=== PATIENT | female | born 1955 | race Caucasian/White ===

== ENCOUNTER 2017-02-22 20:59 | Observation (INO) | payer OTHER ==
--- NOTE | 2017-02-22 21:15 | EDPD ---
HPI Stroke - General Time Seen by Provider: 02/22/17 21:11 Historian: Patient - History of Present Illness Narrative History of Present Illness (Free Text): 02/22/17 21:12 Lily Hdez is a 61 year old female, whose past medical history includes CVA and migraines, who presents to the Emergency department complaining of right upper and lower extremity numbness since 18:00 tonight after dinner. Patient also reports some associated right upper weakness. Patient denies any headache, dizziness, vision changes, speech changes, fever, chills, chest pain, shortness of breath, nausea, vomiting, back pain, neck pain, or any other complaints. Date:: 02/22/17 Time: 21:12 Onset:: Hours (18:00) Timing: Currently Symptomatic Context: Standing, Home Associated Symptoms: Numbness Exacerbated by: Nothing Relieved by: Nothing - Location Location: None Locate Right: Upper extremity, Lower extremity - Pain Assessment/Levels Maximum Severity: None rTPA Inclusion/Exclusion - Refusal of Treatment Patient Refused Treatment: No - Inclusion Criteria for Altepase Patient is 18 years or Older: Yes The Clinical Diagnosis of Ischemic Stroke That is Causing a Potentially Disabling Neurological Deficit: No Time of Onset is Well Established to be Less Than 270 Minute Before Treatment Would Begin: No Risk/Benefit Discussed With Patient/Family Member Present: Yes - Exclusion Criteria for Altepase Uncontrolled Hypertension at Time of Treatment (Systolic BP above 185 or Diastolic BP above 110 mmHg): No Active Internal Bleeding: No Known Bleeding Diathesis Including but Not Limited to: Platelets Below 100,000/ mm,PTT Above 40 sec After Heparin Use, Current Use of Oral Anitcoagulant With INR Greater Than 1.7 or PT Greater Than 15 secs: No Evidence of an Intracranial Hemorrhage: No Evidence of Major Acute Infarct With Signs Greater Than 1/3 MCA Territory: No Suspicion of Subarachnoid Hemorrhage on Pretreatment Evaluation Even if CT Head Negative For Hemorrhage: No - Warning to TPA With Conditions Following Conditions Weighed Against Anticipated Benefit: Yes Condition: Stroke Serevity Too Mild Past Medical History - Provider Review Nursing Documentation Reviewed: Yes - Infectious Disease Hx of Infectious Diseases: None - Tetanus Immunization Tetanus Immunization: Unknown - Cardiac Hx Cardiac Disorders: No - Pulmonary Hx Respiratory Disorders: No - Neurological HX Cerebrovascular Accident: Yes (cva 20 years ago) Hx Migraine: Yes - HEENT Hx HEENT Disorder: No - Renal Hx Renal Disorder: No - Endocrine/Metabolic Hx Endocrine Disorders: No - Hematological/Oncological Hx Blood Disorders: No - Integumentary Hx Dermatological Disorder: No - Musculoskeletal/Rheumatological Hx Musculoskeletal Disorders: No - Gastrointestinal Hx Gastrointestinal Disorders: No - Genitourinary/Gynecological Hx Genitourinary Disorders: No - Psychiatric Hx Psychophysiologic Disorder: No Hx Depression: No Hx Emotional Abuse: No Hx Physical Abuse: No Hx Substance Use: No - Surgical History Hx Orthopedic Surgery: Yes - Suicidal Assessment Feels Threatened In Home Enviroment: No Family/Social History - Family/Social History Family History: Non-Contributory - DrWayne Review Nursing documentation reviewed.: Yes Allergies/Home Meds Allergies/Adverse Reactions: Allergies No Known Allergies Allergy (Verified 06/26/12 10:22) Home Medications: Home Meds Medication Instructions Recorded Confirmed Aspirin [Aspir 81] 81 mg PO DAILY 06/26/12 02/22/17 Review of Systems - Physician Review All systems were reviewed & negative as marked: Yes - Review of Systems Constitutional: Normal. absent: Fevers Eyes: Normal. absent: Vision Changes ENT: Normal Respiratory: Normal. absent: SOB, Cough Cardiovascular: Normal. absent: Chest Pain Gastrointestinal: Normal. absent: Abdominal Pain, Diarrhea, Nausea, Vomiting Genitourinary Female: Normal. absent: Dysuria, Frequency, Hematuria, Urine Output Changes Musculoskeletal: Normal. absent: Back Pain, Neck Pain Skin: Normal. absent: Rash Neurological: Focal Weakness (+right upper/lower extremity numbness). absent: Headache, Dizziness Endocrine: Normal Hemo/Lymphatic: Normal Psychiatric: Normal ED Stroke Physical Exam Vital Signs Reviewed: Yes Temperature: Afebrile Blood Pressure: Normal Pulse: Regular Respiratory Rate: Normal Appearance: Positive for: Well-Appearing, Non-Toxic, Comfortable Pain Distress: None Mental Status: Positive for: Alert and Oriented X 3 - Systems Exam Head: Present: Atraumatic, Normocephalic Pupils: Present: PERRL Extroacular Muscles: Present: EOMI Conjunctiva: Present: Normal Mouth: Present: Moist Mucous Membranes Neck: Present: Normal Range of Motion. No: Meningeal Signs, MIDLINE TENDERNESS , Paraspinal Tenderness Respiratory/Chest: Present: Clear to Auscultation, Good Air Exchange. No: Respiratory Distress, Accessory Muscle Use Cardiovascular: Present: Regular Rate and Rhythm, Normal S1, S2. No: Murmurs Abdomen: Present: Normal Bowel Sounds. No: Tenderness, Distention, Peritoneal Signs Genitourinary/Pelvic Exam: Present: NI. No: C, E Back: Present: Normal Inspection. No: CVA Tenderness, Midline Tenderness, Paraspinal Tenderness Upper Extremity: Present: Normal ROM, NORMAL PULSES. No: Cyanosis, Edema, Tenderness, Swelling, Erythema, Temperature Abnormalties Lower Extremity: Present: Normal Inspection. No: Edema Neurologic: Present: GCS=15, CN II-XII Intact, Motor Func Grossly Intact, Norm Deep Tendon Reflexes, Memory Normal. No: Normal Sensory Function (Slight decreased sensation in right hand), Pronator Drift, Facial Droop, Dysmetric Finger to Nose, Other (Slight decreased reception strength in right hand) Skin: Present: Warm, Dry, Normal Color. No: Rashes Lymphatic: Present: OX3, NI, NC Psychiatric: Present: Alert, Oriented x 3, Normal Insight, Normal Concentration Medical Decision Making ED Course and Treatment: 02/22/17 21:12 Impression: 61 year old female complaining of right-sided upper/lower extremity numbness and some right upper extremity weakness since 18:00. Differential Diagnosis included but are not limited to: TIA vs. CVA Plan: -- CT Head w/o contrast -- EKG -- CXR -- Labs, troponin, lipid panel, blood type and screen -- Reassess and disposition Prior Visits: Notes and results from previous visits were reviewed. On 06/27/2015, pt was seen in the Emergency department s/p mechanical fall for right elbow laceration with pain to the area. Pt was d/c home. Progress Notes: 02/22/17 21:12 Pt seen on arrival. Code Stroke called. Pt taken to CT scan. 02/22/17 21:[address] Rai Loco, neurologist, who is aware and agrees with plan. States pt in not a candidate for tPA due to low severity of symptoms. Aspirin ordered. 02/22/17 21:[address] Head, shows: Brain: There is a small hypodense lacunar infarct within the left basal ganglia , which is too small to determine acuity. The white-gonzalez differentiation is preserved demonstrating no acute territorial type infarct. There is slight prominence of the sulci, compatible with atrophy. No acute intracranial hemorrhage is seen. Midline shift: There is no midline shift. Ventricles: No ventriculomegaly. Bones/joints: The calvarium demonstrates no evidence for a depressed fracture. Soft tissues: No acute abnormality. Vasculature: There is atherosclerotic calcification of the cavernous internal carotid arteries. Sinuses: Unremarkable as visualized. No acute sinusitis. Mastoid air cells: No mastoid effusion. IMPRESSION: 1. There is a small hypodense lacunar infarct within the left basal ganglia, which is too small to determine acuity. Otherwise, there is no acute territorial type infarct. 2. No acute intracranial hemorrhage or acute territorial type infarct. 3. Slight atrophy. 02/22/17 21:57 EKG reviewed, NSR at [address]-segment elevations or depressions, no T-wave inversions, normal intervals. 02/22/17 22:19 CXR reviewed, shows no acute processes. 02/22/17 23:[address] Day, who is aware and agrees with plan. Accepts pt in to her service. Pt will go to Telemetry observation for TIA. Requests Dr. Rai Loco on consult. Pt in no acute distress. Discussed results and hospital observation plan with pt , who is aware and verbalizes understanding. - Critical Care Critical Care Minutes: 30 minutes - Scribe Statement The provider has reviewed the documentation as recorded by the Scribe Dania Robbins All medical record entries made by the Scribe were at my direction and personally dictated by me. I have reviewed the chart and agree that the record accurately reflects my personal performance of the history, physical exam, medical decision making, and the department course for this patient. I have also personally directed, reviewed, and agree with the discharge instructions and disposition. NIHSS Scale ([place]) Time Performed: 21:12 - How Severe is the Stoke Baseline Level of Consciousness: 0=Alert LOC to Questions: 0=Both comments correct LOC to commands: 0=Obeys both correctly Best Gaze: 0=Normal Visual: 0=No visual loss Facial: 0=Normal Motor Arm - Left: 0=No drift Motor Arm - Right: 0=No drift Motor Leg - Left: 0=No drift Motor Leg - Right: 0=No drift Limb Ataxia: 0=Absent Sensory: 1=Mild to moderate loss Best Language: 0=No aphasia Dysarthia: 0=Normal articulation Extinction & Inattention (Neglect): 0=Normal, no object Score: 1 Risk Level: Minor Stroke Risk Disposition/Present on Arrival - Present on Arrival Any Indicators Present on Arrival: No History of DVT/PE: No History of Uncontrolled Diabetes: No Urinary Catheter: No History of Decub. Ulcer: No History Surgical Site Infection Following: None - Disposition Have Diagnosis and Disposition been Completed?: Yes Diagnosis: TIA (transient ischemic attack) Disposition: HOSPITALIZED Disposition Time: 23:52 Patient Problems: Current Active Problems Problem Status Onset TIA (transient ischemic attack) Acute Condition: STABLE Referrals: Barbara eLhman, [Primary Care Provider] - Follow up with primary
[2017-02-22 21:16] VITALS: BMI 29.6
[2017-02-22 21:52] LABS: BASO # 0.1 K/mm3 (0.0-2.0); BASO % 1.5 % (0.0-3.0); EOS # 0.3 (0.0-0.7); EOS % 4.4 % (1.5-5.0); GRAN # 3.62 (1.4-6.5); GRAN % 53.6 % (50.0-68.0); HEMATOCRIT 37.5 % (36.0-48.0); LYMPH # 2.1 (1.2-3.4); LYMPH % 30.6 % (22.0-35.0); MEAN CELL VOLUME 75.8 fl (80.0-105.0); MEAN CORPUSCULAR HEMOGLOBIN 25.3 pg (25.0-35.0); MEAN CORPUSCULAR HGB CONC 33.3 g/dl (31.0-37.0); MEAN PLATELET VOLUME 10.4 fl (7.0-11.0); MONO # 0.7 (0.1-0.6); MONO % 9.9 % (1.0-6.0); RED CELL DISTRIBUTION WIDTH 14.9 % (11.5-14.5); WHITE BLOOD COUNT 6.8 10^3/ul (4.5-11.0)
[2017-02-22 22:03] LABS: ALB/GLOB RATIO 1.2 (1.1-1.8); ALKALINE PHOSPHATASE 75 U/L (38-126); ALT/SGPT 30 U/L (7-56); AST/SGOT 26 U/L (14-36); BILIRUBIN,TOTAL 0.2 mg/dL (0.2-1.3); BLOOD UREA NITROGEN 19 mg/dL (7-21); CALCIUM 9.3 mg/dL (8.4-10.5); CARBON DIOXIDE 23 mmol/L (21-33); CHLORIDE 106 mmol/L (98-107); CHOLESTEROL 174 mg/dL (130-200); GFR AFRICAN-AMERICAN > 60; GLUCOSE,RANDOM 101 mg/dL (70-110); SODIUM 140 mmol/L (132-148); TOTAL PROTEIN 8.1 g/dL (5.8-8.3)
[2017-02-22 22:05] LABS: INR 0.99 (0.93-1.08); PARTIAL THROMBOPLASTIN TIME 29.7 Seconds (25.1-36.5)
[2017-02-22 22:17] LABS: TROPONIN I < 0.01 ng/mL
--- NOTE | 2017-02-23 09:24 | RAD ---
HISTORY: code stroke COMPARISON: No prior. FINDINGS: LUNGS: Poor inspiration with low lung volumes. PLEURA: No significant pleural effusion identified, no pneumothorax apparent. CARDIOVASCULAR: Normal. OSSEOUS STRUCTURES: No significant abnormalities. VISUALIZED UPPER ABDOMEN: Normal. OTHER FINDINGS: None. IMPRESSION: Poor inspiration with low lung volumes. No focal consolidation.
--- NOTE | 2017-02-23 09:53 | CT ---
PROCEDURE: CT HEAD WITHOUT CONTRAST. HISTORY: Code Stroke COMPARISON: None available. TECHNIQUE: Axial computed tomography images were obtained through the head/brain without intravenous contrast. Radiation dose: Total exam DLP = 903.25 mGy-cm. This CT exam was performed using one or more of the following dose reduction techniques: Automated exposure control, adjustment of the mA and/or kV according to patient size, and/or use of iterative reconstruction technique. FINDINGS: HEMORRHAGE: No acute parenchymal, subarachnoid nor extra-axial hemorrhage. BRAIN: Suspect minimal chronic periventricular white matter ischemic changes. Few tiny foci scattered about both basal nuclei could represent tiny chronic lacunar type infarcts. VENTRICLES: Unremarkable. No hydrocephalus. CALVARIUM: Unremarkable. PARANASAL SINUSES: Unremarkable as visualized. No significant inflammatory changes. MASTOID AIR CELLS: Unremarkable as visualized. No inflammatory changes. OTHER FINDINGS: Changes of bilateral cataract surgery are present. IMPRESSION: No acute intracranial hemorrhage. Suspect minimal chronic periventricular white matter ischemic changes. Few tiny foci scattered about both basal nuclei could represent tiny chronic lacunar type infarcts. Mild generalized volume loss.
--- NOTE | 2017-02-23 10:44 | CARD ---
APPROVED REPORT EKG Measurement Heart [id number] <Conclusion> Normal sinus rhythm Normal ECG
--- NOTE | 2017-02-23 14:31 | HP ---
HISTORY OF PRESENT ILLNESS: This 61-year-old female was examined at bedside who was admitted for probable TIA. The patient presented to [facility] ER complaining of acute onset of right upper and lower extremity numbness last evening. The patient has past medical history of old stroke. She presented with numbness on the right arm and leg and was admitted for further evaluation of the above. PAST SURGICAL HISTORY: The patient states past medical history is significant for right breast mass biopsy, unremarkable for carcinoma as well as left eye retinal surgery. SOCIAL HISTORY: The patient is a current nondrinker, nonsmoker. 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 MEDICATIONS: She states her only outpatient medication included Ecotrin 81 mg p.o. daily. REVIEW OF SYSTEMS: CONSTITUTIONAL: No fever, no chills. No complaints of weight loss or decreased appetite. HEAD: History of migraines and old stroke in the distant past. EYES: By review recent left eye surgery now with excellent visual acuity. EARS: No hearing loss. THROAT: No swallowing difficulty. NECK: No stiffness. CARDIAC: No chest pain. No palpitation. No history of myocardial infarction. PULMONARY: No cough. No hemoptysis. GI: No hematemesis or melena. : No dysuria. SKIN: No rash. VASCULAR: No claudication. PSYCHOLOGIC: No history of depression. NEUROLOGIC: History of old CVA and now with resolved right arm numbness. No report of motor weakness. FAMILY HISTORY: Noncontributory. SOCIAL HISTORY: She is a nondrinker, nonsmoker, no IV drug abuse. PHYSICAL EXAMINATION: VITAL SIGNS: Temperature 97.6, respirations 18, pulse 58 and blood pressure 131/75. Pulse ox 99% room air. national sales director shows NSR. HEAD: Normocephalic, atraumatic. EYES: No icterus. EARS: Clear. THROAT: Noninjected. NECK: Supple. HEART: Regular. S1, S2. LUNGS: Clear to auscultation. ABDOMEN: Soft. EXTREMITIES: No edema. SKIN: Without rash. NEUROLOGIC: Grossly intact. Motor strength intact. Sensory exam intact. VASCULAR: Legs warm to touch. SKIN: Without rash. DIAGNOSTICS: EKG showed a normal sinus rhythm. Chest x-ray showed no active disease. No evidence of pneumonia, no CHF, no pleural effusion. CT of the head was reviewed, it revealed no acute parenchymal subarachnoid or extra-axial hemorrhage. Ventricles were unremarkable, no hydrocephalous and there were few, tiny, focal, scattered areas in both basal nuclei which could represent tiny chronic lacunar type infarcts. Mild general volume loss was noted as well. IMPRESSION: A 61-year-old female with history of old cerebrovascular accident, now with evidence of a possible transient ischemic attack with right-sided numbness, now improved. PLAN: The plan at present is to await neurological evaluation. The patient scheduled for carotid ultrasound and echocardiography. She is also ordered to have an MRI without contrast and is ordered to receive Ecotrin 81 mg p.o. daily as well as Plavix 75 mg p.o. daily. LABORATORY DATA: Patient's laboratories show white count 6800, hemoglobin 12.5, hematocrit 37.5, platelets 226,000. PT/INR 0.99, PTT 29.7. Sodium 140, K 4.0, chloride 106, bicarb 23, BUN 19, creatinine 0.7, random blood sugar is 101 and all liver function testing was normal including bilirubin 0.2, AST 26, ALT 30 and alk phos 75. Cholesterol was 174, LDL 91, HDL 61 and triglycerides 135. Based on the results of the above, the patient will have additional testing and adjustment of medication, this will be discussed with neurologist, Dr. Rai Loco, and physical and occupational therapy has been ordered as well. Greater than sixty minutes was spent the care, counseling, management, review of x-rays, labs and medication with this patient today. I have reviewed her case in detail with nursing, Eulalia Barajas, registered nurse. All questions were answered. Shantal Day MD CLARA
--- NOTE | 2017-02-24 01:45 | CON ---
DATE: REASON FOR CONSULTATION: Numbness and weakness of the right side. HISTORY OF PRESENT ILLNESS: The patient is a 61-year-old female who has been asked for evaluation of weakness and numbness in the right side. Apparently, the patient around 6 p.m. while having dinner noticed that she has some tingling and numbness sensation in the right upper extremity as well as the right lower extremity. There is no tingling or numbness sensation of the right side of the face. She was also experiencing some weakness in the right hand. She still feels that the hand operations plant attendant on the right side is not the same as before, but the tingling and numbness have resolved. The patient states she had a stroke when she was 31 years old. At that time, she was diagnosed with antiphospholipid antibody syndrome. She was placed on some anticoagulation, but later on was switched to antiplatelet agent. She has history of migraine headaches; however, at this time, she had no headaches with the symptoms or after the symptoms. REVIEW OF SYSTEMS: Denies any headache, dizziness, chest pain, shortness of breath, abdominal pain, constipation, diarrhea, dysuria, pyuria, cough, sputum production, or hallucinations. MEDICATIONS: Stroke medications at home include aspirin 81 mg daily. ALLERGIES: NO KNOWN DRUG ALLERGIES. SOCIAL HISTORY: Denies smoking, use of alcohol, or illicit drugs. FAMILY HISTORY: Reviewed and noncontributory to the case. PHYSICAL EXAMINATION: GENERAL: The patient is a middle-aged pleasant female lying on the bed, in no acute distress. VITAL SIGNS: Her blood pressure is 131/75, heart rate 58 per minute, breathing at a rate of 16 per minute, and temperature is 97.6 degrees Fahrenheit. HEENT: Head is normocephalic and atraumatic. NECK: Supple. There are no carotid bruits. LUNGS: Clear. CV Exam: S1 and S2 audible. No murmurs. ABDOMEN: Soft and nontender with positive sounds present. NEUROLOGIC: Mental status. The patient is awake, alert, oriented to time, place, and person. Speech is fluent. Naming and repetition is normal. Memory and cognition are intact. Cranial nerve examination: Pupils are 4 mm bilaterally and reactive to light. Visual workman are full. Extraocular movements are intact. There is no facial asymmetry. The palate is upgoing bilaterally and tongue is midline. Motor Examination: Tone is normal. Power is 5/5 bilaterally in all extremities. Reflexes are +1 and symmetrical. Plantars are downgoing bilaterally. Cerebellar examination, [id number] shows no dysmetria. Gait is narrow based. LABS: The labs reviewed shows a WBC 6.8, hemoglobin 12.5, hematocrit 37.5, and platelets of 226. Sodium is 140, potassium 4.0, chloride 106, carbon dioxide 22, BUN 19, creatinine 0.7, and glucose of 101. Her LDL cholesterol 91, total cholesterol 174. Her INR is 0.99, PTT is 29.17. She had a CT scan of the head done, which shows no acute intracranial pathology. IMPRESSION: 1. Status post weakness and numbness in the right lower extremity. This is likely secondary to transient ischemic attack. Rule out any cerebrovascular accident. RECOMMENDATION: 1. The patient do have MRI of the brain without contrast. 2. The patient also had a carotid Doppler study. 3. The patient did not have an echocardiogram. 4. The patient is yet to be started on Plavix in addition to her aspirin. 5. The patient also has been started on statin. 6. The patient to have physical therapy and occupational therapy evaluation. 7. Please continue supportive care and treatment. Thank you for the opportunity to participate in the care of this patient. Neal Loco MD
--- NOTE | 2017-02-24 10:39 | MRI ---
PROCEDURE: MRI BRAIN WITHOUT CONTRAST HISTORY: TIA COMPARISON: Comparison made with CT scan of the brain 02/22/2017. TECHNIQUE: Multiplanar, multisequence MR images of the brain were obtained without intravenous contrast enhancement. FINDINGS: HEMORRHAGE: No acute parenchymal, subarachnoid or extra-axial hemorrhage. No evidence of hemosiderin deposition identified on gradient echo weighted sequence. DWI: No evidence of an acute or early subacute infarction seen on diffusion imaging. . BRAIN PARENCHYMA: Multiple tiny focal areas of increased T2 signal seen scattered about the deep and subcortical white matter of both cerebral hemispheres. Additionally, there is a small focal area of increased T2 signal in the left posterior basal ganglia extending superiorly into the left coronal radiata. Minimal slightly confluent prolonged T2 signal changes seen in the periventricular white matter. Changes are nonspecific though most likely represent minor chronic sequela of small vessel disease. Differential diagnosis would include sequela of old trauma mild, migraine headaches or post infectious/inflammatory in etiology. Demyelinating disease process would be less likely in the absence of a pertinent clinical history though not completely excluded. No obvious parenchymal nor extra-axial mass or collection seen on this noncontrast study. Mild generalized volume loss. VENTRICLES: No obstructive hydrocephalus. CRANIUM: Unremarkable. ORBITS: Changes of bilateral cataract surgery again noted. PARANASAL SINUSES/MASTOIDS: Clear VASCULAR SYSTEM: Visualized major vascular flow voids at skull base are patent. OTHER FINDINGS: None. IMPRESSION: No acute intracranial hemorrhage or infarct. Minor chronic white matter and left basal nuclei ischemic changes. Mild generalized volume loss.
--- NOTE | 2017-02-25 08:10 | PN ---
DATE: 02/24/2017 SUBJECTIVE: This 61-year-old female was examined at her bedside on the Cardiac Unit. This case was reviewed in detail with herself and her nurse. The patient remains in a normal sinus rhythm. She was admitted with neurological changes consistent with transient ischemic attack. At present, the patient denies any fever, chills, cough, chest pain, shortness of breath or new motor weakness or extremity numbness. She remains in a normal sinus rhythm on the corporate affairs manager and is cooperating with diagnostic testing that has been ordered. PHYSICAL EXAMINATION: VITAL SIGNS: Temperature is 98.2, respirations 18, pulse 72 and blood pressure 112/83 with a pulse ox of 99% room air. Her corporate affairs manager shows normal sinus rhythm. HEENT: Head is normocephalic, atraumatic. Eyes: No icterus. Ears: Clear. Throat: Noninjected. NECK: Supple. HEART: Heart is regular, S1, S2. No pathological rubs, murmurs or gallops. LUNGS: Clear to auscultation. ABDOMEN: Soft. EXTREMITIES: No clubbing, no cyanosis, no edema. SKIN: Intact. No rash. VASCULAR: Legs warm to touch. PSYCHOLOGICAL: Alert and oriented x3. NEUROLOGIC: Grossly intact. LABORATORY DATA: White count 6800, hemoglobin 12.5, hematocrit 37.5, platelets 226,000. PT/INR 0.99, PTT 29.7. Sodium 140, K 4.0, chloride 106, bicarb 23, BUN 19, creatinine 0.7, random blood sugar 101. Hemoglobin A1c normal 6.0. All liver function testing is normal including bilirubin 0.2, AST 26, ALT 30 and alk phos 75. Troponin less than 0.01. Cholesterol 174, LDL 91, HDL 61, triglycerides 135. Chest x-ray was reviewed, no evidence of CHF, no pneumonia, no infiltrate, no effusion. EKG: Normal sinus rhythm, nonspecific ST-T wave changes. Head CT, no evidence of gross infarct or hemorrhage. IMPRESSION: A 61-year-old female with history of old stroke, now with transient ischemic attack, resolving symptoms of numbness, no evidence of motor weakness. The patient has been seen by neurologist, Dr. Loco. PLAN: At present is to pursue echocardiography, carotid ultrasound, brain MRI. The patient is ordered to have physical and occupational therapy. She has been prescribed Ecotrin 81 mg p.o. daily, Lipitor 40 mg p.o. at dinner time, Plavix 75 mg p.o. daily. She continues on a heart-healthy diet. She will be maintained on the Cardiac Unit. She will have the above testings completed and reviewed and based on her clinical progress and testing results, additional intervention will be outlined. All of the above was discussed in detail with the patient, nursing and Neurology. Greater than 35 minutes was spent in the care, review of x-rays, labs and counseling of this patient today. All questions were answered. Shantal Day MD MTDD
--- NOTE | 2017-02-25 08:37 | PN ---
DATE: 02/24/2017 NEUROLOGY PROGRESS NOTE SUBJECTIVE: The patient is lying on the bed, in no acute distress. Said the numbness, tingling, and sensation on the right side is better. PHYSICAL EXAMINATION: VITAL SIGNS: Her blood pressure is 112/83, heart rate is 69 per minute, breathing at the rate of 16 per minute, and temperature is 98.5 degrees Fahrenheit. HEENT: Head is normocephalic and atraumatic. NECK: Supple. There are no carotid bruits. LUNGS: Clear. CARDIOVASCULAR: S1 and S2 audible. No murmurs. ABDOMEN: Soft and nontender. Bowel sounds are present. NEUROLOGY: Mental status: The patient is awake, alert, and oriented to time, place, and person. Speech is fluent. Naming and repetition is normal. Memory and cognition are intact. Cranial nerves examination; pupils are 3 mm bilaterally and reactive to light. Visual workman are full. Extraocular movements are intact. Motor examination; tone is normal. Power is 5/5 bilaterally in all extremities. Reflexes are +2 and symmetrical. Plantar is downgoing bilaterally. Cerebellar examination, [id number] shows no dysmetria. LABORATORY DATA: Labs reviewed. MRI of the brain shows no acute intracranial hemorrhage or infarct, minor chronic white matter ischemic changes. She had carotid Doppler study done, the report is awaited. She also had an echocardiogram done, the report is awaited. IMPRESSION: Transient ischemic attack. RECOMMENDATIONS: 1. The patient to be continued on aspirin and Plavix. 2. The patient also to be continued on statin. 3. The patient's symptoms on the right side is better. 4. We will also obtained an electroencephalogram. 5. The patient to have physical therapy. 6. The patient remains stable and echocardiogram and cardiac Doppler are within normal limits and then she may be discharged with outpatient followup. Thank you for the opportunity to participate in the care of this patient. Neal Loco MD
[2017-02-25] MEDS ORDERED: Influenza Vaccine 60 mcg/0.5 mL SYR (4YR UP) IM ONE (10:00)
[2017-02-25] MEDS ORDERED: Pneumococcal 23-Valent Vaccine IM ONE (10:00)
--- NOTE | 2017-02-25 14:44 | CARD ---
APPROVED REPORT EXAM: Two-dimensional and M-mode echocardiogram with Doppler and color Doppler. INDICATION 2D DIMENSIONS IVSd1.0 (0.7-1.1cm)LVDd4.6 (3.9-5.9cm) PWd0.7 (0.7-1.1cm)LVDs3.1 (2.5-4.0cm) FS (%) 31.7 %LVEF (%)59.8 (>50%) M-Mode DIMENSIONS Left Atrium (MM)2.90 (2.5-4.0cm)Aortic Root2.60 (2.2-3.7cm) Aortic Cusp Exc.1.90 (1.5-2.0cm) Aortic Valve AoV Peak Wbzxyxfb900.0cm/Beverly Peak GR.9mmHg Mitral Valve MV E Wbnxtztd86.4cm/sMV A Ggazaqrf44.1cm/sE/A ratio1.3 TDI Lateral E' Peak V11.90cm/sMedial E' Peak V9.26cm/sE/Lateral E'7.4 E/Medial E'9.5 Tricuspid Valve TR Peak Aptgxzji478jo/sRAP VZBZRJOC74ziByAV Peak Gr.27mmHg AEJR77frDa LEFT VENTRICLE The left ventricle is normal size. There is normal left ventricular wall thickness. The left ventricular function is normal.EF-55-60% There is normal LV segmental wall motion. The left ventricular diastolic function is normal. No left ventricle thrombus noted on this study. There is no ventricular septal defect visualized. There is no left ventricular aneurysm. There is no mass noted in the left ventricle. RIGHT VENTRICLE The right ventricle is normal size. There is normal right ventricular wall thickness. The right ventricular systolic function is normal. ATRIA The left atrium size is normal. The right atrium size is normal. The interatrial septum is intact with no evidence for an atrial septal defect. AORTIC VALVE The aortic valve is thickened but opens well. No aortic regurgitation is present. There is no aortic valvular stenosis. There is no aortic valvular vegetation. MITRAL VALVE The mitral valve is thickened but opens well. Mitral annular calcification is mild. Mitral regurgitation is trace. There is no mitral valve stenosis. There is no evidence of mitral valve prolapse. TRICUSPID VALVE The tricuspid valve leaflets are thickened , but open well. There is mild tricuspid regurgitation.RVSP-37 mmof hg. There is no tricuspid valve stenosis. There is no tricuspid valve prolapse or vegetation. PULMONIC VALVE The pulmonary valve is normal in structure. There is no pulmonic valvular regurgitation. There is no pulmonic valvular stenosis. GREAT VESSELS The aortic root is normal in size. The ascending aorta is normal in size. The pulmonary artery is normal. The IVC is normal in size and collapses >50% with inspiration. PERICARDIAL EFFUSION There is no pleural effusion. There is no pericardial effusion. <Conclusion> Normal Chamber SIze. EF-55-60% Mitral regurgitation is trace. There is mild tricuspid regurgitation.RVSP-37 mmof hg. No vegetation or thrombus noted.
--- NOTE | 2017-02-25 19:02 | US ---
PROCEDURE: Bilateral carotid artery duplex ultrasound HISTORY: Carotid stenosis TIA PHYSICIAN(S): Kyle Morocho MD. TECHNIQUE: Duplex sonography and color-flow Doppler were used to evaluate the carotid bifurcations and limited segments of the vertebral arteries bilaterally. FINDINGS: There is mild smooth hypoechoic plaque noted at the carotid bifurcations bilaterally. The peak systolic velocity in the proximal right internal carotid artery is 66 cm/sec. This corresponds to a 20 to 39% proximal right ICA stenosis. Normal systolic velocities are noted in the proximal right external carotid artery. There is antegrade flow in the right vertebral artery. The peak systolic velocity in the proximal left internal carotid artery is 75 cm/sec. This corresponds to a 20 to 39% proximal left ICA stenosis. Normal systolic velocities are noted in the proximal left external carotid artery. There is antegrade flow in the dominant left vertebral artery. IMPRESSION: 1. Bilateral 20-39% proximal ICA stenoses. 2. Antegrade flow in both vertebral arteries.
--- NOTE | 2017-02-26 08:14 | PN ---
DATE: 02/25/2017 SUBJECTIVE: This 61-year-old female was examined at her bedside. She remains on the cardiac unit. She is currently in a normal sinus rhythm. She denies any headache, fever, chills, chest pain, or shortness of breath. There have been no reports of seizure, motor weakness, or any new numbness. She is complaining of low right back pain and states she has a history of sciatica and feels as if she is having a recurrent episode at present. Today, the patient has been neurologically stable. Her workup has included carotid ultrasound; echocardiography which remain pending. Chest x-ray shows no active disease; brain MRI showed no evidence of new stroke or infarct; and head CT was unremarkable as well, an EEG has been requested. 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 Temperature 97.5, respirations 20, pulse 59, blood pressure 122/75, pulse oximetry 99% on room air. HEENT: Head normocephalic, atraumatic. Eyes: No icterus. Ears: Clear. Throat: Noninjected. NECK: Supple. HEART: Regular S1, S2. LUNGS: Clear. ABDOMEN: Soft. EXTREMITIES: No edema. SKIN: Without rash. NEUROLOGICAL: Intact. PSYCHOLOGICAL: Alert. VASCULAR: Legs warm to touch. LABORATORY DATA: White count 6800, hemoglobin 12.5, hematocrit 37.5, platelets 226,000. PT/INR 0.99, PTT 29.7. Sodium 140, K 4.0, chloride 106, bicarb 23, BUN 19, creatinine 0.7, random blood sugar 101. Hemoglobin A1c normal 6.0. All liver function testing was normal including bilirubin 0.2, AST 26, ALT 30, alkaline phosphatase 75. Cholesterol 174, triglycerides 135, LDL 91, HDL 61. IMPRESSION: A 61-year-old female with history of old stroke, now with transient ischemic attack and history of migraine headache, stable, status post transient ischemic attack. PLAN: At present is to await results of carotid ultrasound, 2-D echocardiography, EEG asleep and awake has been ordered. For her acute sciatica attack, she will be ordered to receive a low dose Motrin. She continues on Ecotrin 81 mg p.o. daily, Lipitor 40 mg p.o. at dinner time, Plavix 75 mg p.o. daily, and is continuing on a heart-healthy, soft, bland diet. She is awaiting physical therapy for ambulation and staircase safety. She is being followed by Neurology and additional workup and testing will be entertained based on the results of the above. Greater than 35 minutes was spent in the care, review of labs, x-rays, consultations, and discussion with the patient, nursing and Neurology. All questions were answered. Shantal Day MD MTDD
--- NOTE | 2017-02-27 00:25 | DS ---
FINAL DIAGNOSES: 1. Transient ischemic attack. 2. History of old stroke. 3. Numbness, resolved. DISPOSITION: Home. FOLLOWUP: Outpatient with Dr. Hurtado, Neurology. DISCHARGE MEDICATIONS: Ecotrin 81 mg p.o. daily, Lipitor 40 mg p.o. at dinner time, Plavix 75 mg p.o. daily. SUMMARY: This 61-year-old female was admitted to the [facility] (Formerly [facility]) with right leg and arm numbness, no weakness, and was felt to have a transient ischemic attack. Past medical history is significant for old CVA and the patient was seen by Dr. Rai Loco from Neurology and underwent a diagnostic workup, including head CT, echocardiography, carotid ultrasound, and brain MRI. All results were negative for acute stroke and the patient at the time of this dictation, is awaiting clearance for discharge to home by Dr. Loco, who needs to read the patient's EEG and outline any further instructions if necessary. The patient remained in a normal sinus rhythm on the secured entrance monitor. PHYSICAL EXAMINATION: VITAL SIGNS: Temperature 98.6, respirations 20, pulse 87, blood pressure 115/76, and pulse ox 97% room air. LABORATORY DATA: Showed white count 6800, hemoglobin 12.5, hematocrit 37.5, platelets 226,000. PT/INR 0.99, PTT 29.7. Sodium 140, K 4.0, chloride 106, bicarb 23, BUN 19, creatinine 0.7, random blood sugar 101. Hemoglobin A1c normal at 6. All liver function testing was normal, including bilirubin 0.2, AST 26, ALT 30, and alk phos 75. Cholesterol was 174, LDL 91, HDL 61, and triglycerides 135. The patient is discharged to home. She will need to see Dr. Hurtado, her neurologist within 48 hours, and I have asked Dr. Loco to outline any orders for outpatient physical therapy if he desires this. The patient was instructed on the need for compliance with medication and to have this followed with Dr. Hurtado, her neurologist as well. All questions were answered and nursing staff was informed to coordinate discharge orders and followup instructions with Dr. Loco from Neurology and to have nurse practitioner write a 1-month supply of all medication as listed above. Shantal Day MD [facility] # [id number] CLARA
--- NOTE | 2017-02-27 02:01 | EEG ---
ELECTROENCEPHALOGRAM REPORT DATE: 02/25/2017 INTRODUCTION: This is a digitally recorded EEG monitoring using standard EEG montages. BACKGROUND RHYTHM: The EEG shows a background activity of 9-10 Hz, alpha activity in parietooccipital region. The EEG activity is bilaterally symmetrical and synchronous. There is an attenuation of the background activity on eye opening. No sleep recording was noted. ABNORMAL POTENTIALS: No spike, sharp waves, or focal slowing was seen. PHOTIC STIMULATION AND HYPERVENTILATION: Photic stimulation did not reveal any abnormality. Hyperventilation was not performed. IMPRESSION: Normal electroencephalogram. No epileptiform activity seen in this electroencephalogram recording. Neal Loco MD
[2017-02-27 06:21] VITALS: O2SAT 100
[2017-02-27 11:59] VITALS: BP 114/77; PULSE 80; RESP 19; TEMP 98
--- NOTE | 2017-02-27 23:04 | PN ---
DATE: 02/26/2017 SUBJECTIVE: This 61-year-old female was examined at her bedside, and her case was reviewed in detail with herself, Neurology, and nurse, Michael Becerra. The patient was admitted with a transient ischemic attack with manifestation of right upper and lower extremity numbness. The patient is being followed by Dr. Neal Loco from Neurology, who has ordered diagnostic workup including echocardiography, head CT, brain MRI, carotid ultrasound, and EEG. Thus far, testing has been unremarkable. EEG is pending and patient is ambulating independently with no complaints of headache, motor weakness, chest pain, shortness breath, fever, or chills. PHYSICAL EXAMINATION: VITAL SIGNS: Her temperature was 98.7, respirations 21, pulse 92, and blood pressure 112/77 with a pulse ox of 99% on room air. Her potline monitor showed normal sinus rhythm. HEAD: Normocephalic, atraumatic. EYES: No icterus. EARS: Clear. THROAT: Noninjected. NECK: Supple. HEART: Regular, S1, S2. LUNGS: Clear. ABDOMEN: Soft. EXTREMITIES: No edema. SKIN: Without rash. NEUROLOGICAL: Intact. PSYCHOLOGICAL: Alert. VASCULAR: Legs were warm to touch. LABORATORY DATA: Her white count was 6800, hemoglobin 12.5, hematocrit 37.5, platelets 226,000. PT/INR 0.99, PTT 29.7. Sodium 140, K 4.0, chloride 106, bicarb 23, BUN 19, creatinine 0.7, random blood sugar 101. Hemoglobin A1c 6.0. All liver function testing was normal including bilirubin 0.2, AST 26, ALT 30, alk phos 75. Cholesterol 174, triglycerides 135, LDL 91, HDL 61. Chest x-ray showed no active disease. Head CT showed no evidence of stroke. Echocardiography was unremarkable. There was no vegetation or thrombus seen. Carotid ultrasound was reviewed and showed noncritical carotid artery stenosis. Brain MRI showed no evidence of CVA as well. IMPRESSION: A 61-year-old female with history of old stroke in the distant past, now with probable transient ischemic attack, history of migraines, and history of sciatica. PLAN: The plan as discussed with the patient, nursing, and Dr. Loco; is to proceed with EEG and await results. She will continue on Lipitor 40 mg p.o. at bedtime, Ecotrin 81 mg p.o. daily, and Plavix 75 mg p.o. daily as recommended by Neurology. If EEG is unremarkable, she will be discharged to home with followup with Neurology as an outpatient, and the patient will continue on heart-healthy diet. All of the above was discussed in detail with the patient, nursing, Neurology, and case management. Greater than 35 minutes was spent in the care, coordination of care, review of x-rays, labs, consultation reports, and discussion of this patient's workup. All questions were answered. Shantal Day MD MTDD
== END 2017-02-27 16:51 | disposition home or self-care (01) ==
LOC: ED 20:59 → ERH 23:50 → 2RSO 02-23 01:30 → INTOOBSV 02-23 13:18 → OBSVTOIN 02-23 13:18 → 2RSO 02-24 14:06
PROVIDERS: ADMIT Internal Medicine; ATTEND Internal Medicine
DX: I63.9 Cerebral infarction, unspecified (principal); Z79.82 Long term (current) use of aspirin; Z86.73 Personal history of transient ischemic attack (TIA), and cerebral infarction without residual deficits; G43.909 Migraine, unspecified, not intractable, without status migrainosus; R40.2412 Glasgow coma scale score 13-15, at arrival to emergency department; S51.011A Laceration without foreign body of right elbow, initial encounter; Z91.81 History of falling; Z23 Encounter for immunization
CPT/HCPCS: 70450; 70551; 71010; 80053; 80061; 82948; 83036; 84484; 85025; 85610; 85730; 86850; 86900; 90471; 90674; 90732; 93005; 93306; 93880; 95812; 97116; 97161; 97165; 97535; 99285; G0378; G8978; G8979; G8987; G8988; G8989